=== PATIENT | female | born 1995 | race African-American/Black ===

== ENCOUNTER 2020-03-26 23:02 | Inpatient (IN) | payer OTHER ==
[2020-03-27 00:57] LABS: Bilirubin Negative (Negative); Blood, Urine 2+ (Negative); Clarity Clear (Clear); Glucose, Urine (Dipstick) Normal (Negative); Ketone, Urine 10 mg/dL (Negative); Leukocyte 250 Leu/uL (Negative); Nitrite Negative (Negative); Protein, Urine (Dipstick) Negative (Neg-Trace); Specific Gravity, Urine 1.012 (1.002-1.036); Squamous Epithelial 0-3 HPF (0-3); Urobilinogen Normal mg/dL (Less than 2)
[2020-03-27 00:58] LABS: Bacteria/HPF 1+ HPF (None Seen)
[2020-03-27 01:04] LABS: ALT (SGPT) 21 U/L (8-55); AST (SGOT) 16 U/L (5-34); Albumin 4.3 g/dL (3.5-5.0); Alkaline Phosphatase 73 U/L (40-110); Anion Gap 15 mmol/L (10-20); BUN (Urea Nitrogen) 7 mg/dL (7.0-18.7); Bilirubin, Total 0.3 mg/dL (0.2-1.2); Calc. Creatinine Clearance 0 mL/min (70-130); Calcium 9.5 mg/dL (7.8-10.44); Carbon Dioxide 21 mmol/L (22-29); Chloride 105 mmol/L (98-107); Estimated GFR-MDRD Greater than 90; Globulin 3.5 g/dL (2.4-3.5); Glucose 114 mg/dL (70-105); Potassium 3.7 mmol/L (3.5-5.1); Protein, Total 7.8 g/dL (6.0-8.3); Sodium 137 mmol/L (136-145)
[2020-03-27] MEDS ORDERED: Clindamycin/D5W 900 mg/50 ml Premix Bag ONE (01:28)
[2020-03-27] MEDS ORDERED: Ketorolac Tromethamine 30 MG/ML VIAL ONE (01:52)
[2020-03-27] MEDS ORDERED: Morphine 2 MG/ML VIAL ONE (01:52)
[2020-03-27 03:19] VITALS: BMI 30.5
[2020-03-27] MEDS ORDERED: Ketorolac Tromethamine 30 MG/ML VIAL IVP PRN (03:38)
[2020-03-27] MEDS: Sodium Chloride 0.9% 10 ML ONE ×2 (03:39→06:21)
[2020-03-27] MEDS ORDERED: Acetaminophen/Codeine 30-300mg Tablet PO PRN (03:39)
[2020-03-27] MEDS ORDERED: Sodium Chloride 0.9% 10 ML ONE (06:15)
[2020-03-27] MEDS: Acetaminophen/Codeine 30-300mg Tablet PO PRN ×2 (06:24→10:53)
--- NOTE | 2020-03-27 08:42 | ULT ---
PRELIMINARY REPORT/[facility]/EMERGENCY AFTER HOURS PROCEDURE: EXAM: US Pelvis, Complete. CLINICAL HISTORY: HX: CRAMPING 4WKS PREG. SEE NOTES ON LAST IMAGE. THANKS TECHNIQUE: Transvaginal pelvic ultrasound (complete) with image documentation. COMPARISON: None provided. FINDINGS: ENDOMETRIUM: Normal thickness. No intrauterine gestational sac, pole or yolk sac visualized. UTERUS/CERVIX: Normal size and contour. No fibroid detected. RIGHT OVARY: Normal follicles. No adnexal mass. Normal blood flow. LEFT OVARY: Normal follicles. No adnexal mass. Normal blood flow. FREE FLUID: Small amount of simple appearing pelvic free fluid likely physiologic IMPRESSION: 1. Sonographic findings most consistent with of unknown location, most likely early intrau terine . Recommend close clinical follow-up with trending of beta hCG and repeat imaging as clinically indicated. 2. No acute finding. ELECTRONICALLY SIGNED BY: Lars Carvajal DO Mar 27, 2020 12:43:17 AM CDT FINAL REPORT EMERGENT AFTER HOURS PELVIC ULTRASOUND: FINDINGS/IMPRESSION: I agree with the findings given in the preliminary report per [facility] physician. There is n o evidence of intrauterine or ectopic at this time. A very early cannot be exclu ded as the patient reports only being 4 weeks . POS: EAA
--- NOTE | 2020-03-27 09:47 | HP ---
PRIMARY OB: CHIEF COMPLAINT: Vulvar pain. HISTORY OF PRESENT ILLNESS: The patient is a 24-year-old female presenting to the emergency room with a 4-day history of worsening vulvar pain. The patient was seen last Friday in the emergency room in [place] and was told that she had a vulvar infection and was given antibiotics. She re-presented yesterday with worsening pain, unable to bear at home. Ultrasound of the area showed a mass about 2-1/2 x 5 cm. This area looked to be complex with part of it appearing to be either hematoma or an abscess. The patient was admitted to the hospital for pain control and IV antibiotics through the emergency room and was given a dose of clindamycin. Upon presentation, the patient confirmed they story just shared and reports that she has never had a cystic structure like this before or an infection like this before. She denies any history of a pimple or folliculitis. She denies history of sexually transmitted infection. She denies history of trauma to the area. The patient denies fever. She does report that she has a newly diagnosed at this encounter. She reports that sitting causes worsening pain and that she is unable to sit at this time and that movement, activity and position change worsens this pain. She denies fever. She reports she has had some nausea and vomiting. She denies chest pain or shortness of breath. PAST MEDICAL HISTORY: Includes iron deficiency anemia, hypertension. PAST SURGICAL HISTORY: She has had a benign fibrous mass removed from her right breast. SOCIAL HISTORY: She drinks occasionally. Denies drug or tobacco use. ALLERGIES: NO KNOWN DRUG ALLERGIES. MEDICATION: The patient received a dose of Toradol 30 mg, 2 mg of morphine IV and 900 mg of clindamycin in the emergency room. PHYSICAL EXAMINATION: VITAL SIGNS: Blood pressure of 140/77, pulse of 104, respiratory rate of 16, saturating 100% on room air. GENERAL: At time of my evaluation, she appears to be in no acute distress. She is alert, oriented, cooperative, and pleasant to interact with. HEAD: Normocephalic, atraumatic. LUNGS: Clear to auscultation bilaterally. HEART: Regular rate and rhythm. ABDOMEN: Gravid, soft, nontender. EXTREMITIES: Nontender, nonedematous. EXTERNAL GENITALIA: Vulva is without masses, lesions, or erythema. On palpation of the labia, the patient's left labia is tender with deep palpation. There is a palpable mass that is deep in the labia, but not in the location suggestive of Bartholin gland. There is no bruising to the area. Again, there is no erythema. There is no abnormal discharge. The rest of her exam has been deferred at this time. ASSESSMENT AND PLAN: The patient is a 24-year-old female with a vulvar infection to a deep structure or trauma to the area. This area may represent a vestigial remnant, may also represent a hematoma that has developed inadvertently to the patient's knowledge. The patient is being admitted for pain control and will be continuing clindamycin p.o. over the next 24 to 48 hours depending on how quickly and how well her pain is controlled. We can re-evaluate for the likelihood of I and D once the fluctuance or cystic area becomes much more prominent. She has Tylenol 3 and Toradol for pain control at this time. Oncoming physician is Dr. Martinez who will be continuing management and making decisions. Job ID: [id number]
[2020-03-27] MEDS ORDERED: Clindamycin/D5W 900 MG in Premix Bag 1 BAG IVPB SCH (10:00)
[2020-03-27 12:01] LABS: SARS-CoV-2 MS2 Positive; SARS-CoV-2 N Gene Negative; SARS-CoV-2 S Gene Negative; SARS-CoV-2 by NAA Not Detected (NotDetected); SARS-CoV-2 orf1ab Negative
--- NOTE | 2020-03-27 12:27 | PDOC.BPN ---
- Brief Progress Note Encounter Date: 03/27/20 Encounter Time: 12:24 Pain improves with medication. Patient felt more comfortable after receiving Toradol this morning, but has not had another dose yet. She is afebrile with normal vital signs and does not appear ill. I examined her for the possibility of I&D today. 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 The area does not appear grossly abnormal or inflamed but there is a small cystic area noted with deep palpation. Will continue antibiotics today and reassess in the morning. In the mean time, the patient was encouraged to use warm compresses. Will change toradol to scheduled and continue T3 PRN.
[2020-03-27] MEDS ORDERED: HYDROcodone/Acetaminophen 5/325 mg Tablet PO PRN (12:39)
[2020-03-27] MEDS: Clindamycin 150 MG CAP PO SCH ×2 (12:46→19:53)
[2020-03-27] MEDS ORDERED: Ketorolac Tromethamine 30 MG/ML VIAL IVP SCH (14:00)
[2020-03-27] MEDS: HYDROcodone/Acetaminophen 5/325 mg Tablet PO PRN ×2 (14:36→19:54)
[2020-03-28] MEDS: Clindamycin 150 MG CAP PO SCH ×2 (04:26→12:23)
[2020-03-28] MEDS: HYDROcodone/Acetaminophen 5/325 mg Tablet PO PRN ×3 (04:27→12:24)
--- NOTE | 2020-03-28 07:57 | PDOC.BPN ---
- Brief Progress Note Encounter Date: 03/28/20 Encounter Time: 07:05 S: Patient reported spontaneous drainage yesterday with some relief. However, overnight, started having more pain again and drainage stopped. Denies other complaints this morning. O: Vital Signs - Most Recent Temp Pulse Resp BP Pulse Ox 98.8 F 88 20 126/99 H 100 03/28/20 04:25 03/28/20 04:25 03/28/20 04:25 03/28/20 04:25 03/28/20 04:25 Gen - AAO, NAD Pelvic - normal appearing female genitalia. Very tender to palpation of left lower labia with more prominent mass. No drainage noted at this time. Labs - Abscess culture - pending A/P: Counseled patient that she will likely need an I&D today. Continue Clinda at this time. Daniels for pain. Will be handing off to Dr. Milton this morning for further management.
[2020-03-28] MEDS ORDERED: Lidocaine 1% (PF) 30 ML VIAL SC SCH (07:58)
[2020-03-28 11:48] VITALS: BP 114/58; TEMP 98.4
[2020-03-28] MEDS ORDERED: Promethazine HCl 25 MG/ML VIAL IM SCH (13:00)
--- NOTE | 2020-03-28 23:28 | OP ---
DATE OF PROCEDURE: 03/28/2020 PREOPERATIVE DIAGNOSIS: Bartholin gland abscess. POSTOPERATIVE DIAGNOSIS: Bartholin gland abscess. PROCEDURE: I and D as well as marsupialization of the Bartholin's gland. ANESTHESIA: Local. COUNT: Correct. COMPLICATIONS: None. SPECIMENS: None. DESCRIPTION OF PROCEDURE: Ms. Jahaira Purcell, who was admitted two days ago for a vulvar abscess has had time for this abscess to develop and is much more noticeable now and more clearly a Bartholin's gland cyst abscess. Patient was counseled today to the benefit of incision and drainage and marsupialization of the Bartholin's gland cyst, including the risk of failure to prevent future cyst formation and abscess. Patient gave verbal consent, expressing understanding and desired to proceed. She was premedicated with 50 mg of Demerol and 25 mg of Phenergan and placed in dorsal lithotomy position on [employer] exam table. The area was prepped with Betadine and approximately 3 mL of 1% lidocaine was then injected into the skin over the cyst wall close to the level of the introitus. At this point through the couple of the injection sites, a mucousy purulent fluid was being expressed. A #11 blade was then used to enlarge the defect at the point where the abscess was coming to ahead. A copious amount of purulent mucousy discharge was then drained. This area was then irrigated thoroughly. A 3-0 Vicryl was then used to suture the cyst wall on the inside to the exterior epithelium portion of the cyst just was whipstitched closing off the defect to closure with intention of upon healing they would remain a fistula between this cyst wall and exterior. Upon drainage of the cyst wall, patient had immediate reduction in her pain. She tolerated the overall procedure well and did require some additional lidocaine. Once it was completed, the patient was noted to have good hemostasis and then the patient was returned back to her room. Job ID: [id number]
--- NOTE | 2020-03-29 02:44 | DIS ---
DATE OF ADMISSION: 03/27/2020 DATE OF DISCHARGE: 03/28/2020 ADMITTING DIAGNOSES: 1. Vulvar pain, uncontrolled and failed outpatient management of a suspected vulvar abscess. 2. Newly-diagnosed . DISCHARGE DIAGNOSES: 1. Bartholin's gland abscess. 2. Newly-diagnosed . PROCEDURE: I and D, and marsupialization of the Bartholin's gland. CONSULTATIONS: None. HOSPITAL COURSE: Patient is a 24-year-old female, who presented to the emergency room with 4-day history of worsening vulvar pain. The patient had been seen earlier, and sent home with oral antibiotics in effort to treat a suspected vulvar abscess. Upon evaluation, it was determined the patient would best be served coming into the hospital for pain control and antibiotic treatment. On initial evaluation, the area was not been well-organized and no clear areas of fluctuance were appreciated. The patient continued on antibiotics for 2 hospital days. On hospital day 2, patient was noted to have a much better organized cystic structure that was clearly coming the deep aspect of the labia. At this time on evaluation, it appeared to be Bartholin's gland cyst abscess. The patient was counseled to the benefits of I and D procedure, and marsupialization of the Bartholin's gland cyst. The patient gave verbal consent and desire to proceed. This procedure went uncomplicated and patient was returned to her room. Upon returning to her room, patient was discharged home. The vulvar tissue appeared to be healthy, and without any significant erythema. The patient was sent home now that this is draining and opened without antibiotics. She has been counseled to follow up with an [employer] in about a month for followup of her . In the meantime, patient has been counseled to avoid alcohol, tobacco, drugs and to begin a course of vitamins or folic acid. The patient has been given a list of OB providers that she can choose from, was initially recommended to Dr. Rowan. Vital signs at time of discharge; blood pressure 114/58, temperature 98.4, respiratory rate of 20, pulse rate of 89. At time of discharge, patient has had significant improvement in her pain and appeared to be in no acute distress, alert, oriented, cooperative, and pleasant to interact with. Job ID: [id number]
== END 2020-03-28 17:55 | disposition home or self-care (01) | DRG 832 ==
LOC: ERS 23:02 → 3SW 03-27 02:45 → 3SE 03-27 12:23
PROVIDERS: ADMIT Obstetrics & Gynecology; ATTEND Obstetrics & Gynecology
PROC: 0U9L0ZZ Drainage of Vestibular Gland, Open Approach (ICD-10-PCS; principal; 2020-03-28)
DX: O23.591 Infection of other part of genital tract in pregnancy, first trimester (principal); N75.1 Abscess of Bartholin's gland; O10.011 Pre-existing essential hypertension complicating pregnancy, first trimester; N75.0 Cyst of Bartholin's gland; Z20.828 Contact with and (suspected) exposure to other viral communicable diseases; D50.9 Iron deficiency anemia, unspecified; Z3A.00 Weeks of gestation of pregnancy not specified; O99.011 Anemia complicating pregnancy, first trimester
CPT/HCPCS: 36415; 76856; 81003; 81015; 84702; 87040; 87070; 87205; 87635; 93005; J1885; J2001; J2175; J2270; J2550; J3490; U0003